=== PATIENT | male | born 1985 | race African-American/Black ===

== ENCOUNTER 2018-01-28 00:46 | Emergency (ER) | payer OTHER ==
[~2018-01-28] VITALS: Ht 167.6 cm; Wt 77.1 kg
--- NOTE | 2018-01-28 01:20 | PHYS DOC ---
Past Medical History Past Medical History: No Pertinent History, Hypertension Past Medical History Hypercholesterolemia Past Surgical History: Other (Left hand wart surgery) Additional Past Surgical Histo: hand Smokin Pack Per Day Alcohol Use: Occasionally Drug Use: Marijuana, Opiates Adult General Chief Complaint Chief Complaint: DRUG ABUSE HPI HPI Patient is a 32yo male presenting to the ED seeking help with opioid detox. Pt states that he has been using Percocet and hydrocodone for the last 8 years, which were initially prescribed to him for shoulder pain. States that his last use was approximately 24 hours ago. He has never sought treatment for opioid abuse. He states that he vomited today and had diarrhea. States that his whole body is in pain currently. Denies SI, HI, or hallucinations. Review of Systems Review of Systems Constitutional: Denies fever or chills [] Eyes: Denies change in visual acuity, redness, or eye pain [] HENT: Denies nasal congestion or sore throat [] Respiratory: Denies cough or shortness of breath [] Cardiovascular: Denies chest pain or palpitations GI: Reports nausea, vomiting, and diarrhea [] : Denies dysuria or hematuria [] Musculoskeletal: Denies back pain or joint pain [] Integument: Denies rash or skin lesions [] Neurologic: Denies headache, focal weakness or sensory changes [] Psych: Denies suicidal or homicidal ideation Complete systems were reviewed and found to be within normal limits, except as documented in this note. Current Medications Current Medications Current Medications Medications (Trade) Dose Ordered Sig/Katherine Start Time Stop Time Status Last Admin Dose Admin Clonidine HCl (Catapres) 0.1 mg 1X ONCE 01/28/18 02:00 01/28/18 02:01 DC 01/28/18 01:55 0.1 MG Dexamethasone (Decadron) 10 mg 1X ONCE 01/28/18 02:00 01/28/18 02:01 DC 01/28/18 01:54 10 MG Ondansetron HCl (Zofran Odt) 4 mg 1X ONCE 01/28/18 02:00 01/28/18 02:01 DC 01/28/18 01:55 4 MG Allergies Allergies Allergies Coded Allergies Type Severity Reaction Last Updated Verified No Known Drug Allergies 09/01/13 No Physical Exam Physical Exam Constitutional: Well developed, well nourished, no acute distress, non-toxic appearance. [] HENT: Normocephalic, atraumatic, Eyes: PERRL, EOMI, conjunctiva normal, no nystagmus Neck: Normal range of motion, no tenderness, supple, no stridor. [] Cardiovascular: Heart rate regular rhythm, no murmur [] Lungs & Thorax: Bilateral breath sounds clear to auscultation [] Abdomen: Soft, no tenderness Skin: Warm, dry, no erythema, no rash. [] Extremities: No tenderness, ROM intact, no edema. [] Neurologic: Alert and oriented X 3, normal motor function, normal sensory function, no focal deficits noted. [] Psychologic: Affect normal, judgement normal, mood normal, denies suicidal and homicidal ideation Current Patient Data Vital Signs Vital Signs Date Time Temp Pulse Resp B/P (MAP) Pulse Ox O2 Delivery O2 Flow Rate FiO2 01/28/18 01:55 97 198/102 01/28/18 01:11 97.7 20 98 Room Air 97.7 EKG EKG [] Radiology/Procedures Radiology/Procedures [] Course & Med Decision Making Course & Med Decision Making Pertinent Labs and Imaging studies reviewed. (See chart for details) Patient presents with report of opioid dependency. Patient concerned given some withdrawal symptoms. Patient neurologically intact. Symptomatic treatment provided. Detox and drug abuse resources provided. Patient stable for discharge with outpatient follow-up with PCP. Discussed findings and plan with patient, who acknowledges understanding and agreement. Dragon Disclaimer Dragon Disclaimer This electronic medical record was generated, in whole or in part, using a voice recognition dictation system. Departure Departure Impression: Primary Impression: Opioid abuse Disposition: 01 HOME, SELF-CARE Condition: STABLE Referrals: WILIAN JULES MD (PCP) Patient Instructions: Narcotic Withdrawal, Opiate Dependence Scripts Clonidine Hcl (CLONIDINE HCL) 0.1 Mg Tablet 0.1 MG PO TID PRN for WITHDRAWAL IRRITABILITY, #14 TAB Prov: WILIAN HAGEN DO 01/28/18 Ondansetron (ZOFRAN ODT) 4 Mg Tab.rapdis 4 MG PO TID PRN for NAUSEA/VOMITING, #14 TAB Prov: WILIAN HAGEN DO 01/28/18 WILIAN HAGEN DO Jan 28, 2018 01:20
[2018-01-28] MEDS ORDERED: CLON0.1T PO (01:42)
[2018-01-28] MEDS ORDERED: ONDA4TAB10 PO (01:42)
[2018-01-28 01:55] VITALS: BP 198/102
[2018-01-28] MEDS ORDERED: ONDANSETRON ODT 4 MG TAB.RAPDIS. PO ONE (02:00)
[2018-01-28] MEDS ORDERED: cloNIDine HCL 0.1 MG TABLET PO ONE (02:00)
[2018-01-28] MEDS ORDERED: DEXAMETHASONE 4 MG TABLET PO ONE (02:00)
== END 2018-01-28 02:03 | disposition home or self-care (01) ==
LOC: ER 00:46
DX: F11.10 Opioid abuse, uncomplicated (principal); I10 Essential (primary) hypertension; F12.10 Cannabis abuse, uncomplicated; F17.210 Nicotine dependence, cigarettes, uncomplicated; E78.00 Pure hypercholesterolemia, unspecified
CPT/HCPCS: 99284; J8540; Q0162

== ENCOUNTER → 2020-06-17 | Outpatient (CLI) | payer MEDICAID ==
[~2020-06-17] MED LIST: CLON0.1T PO; ONDA4TAB10 PO
--- NOTE | 2020-06-17 14:33 | KCIC ---
3 views of the left knee without comparison for generalized knee pain for 6 months. FINDINGS: There is no fracture or acute osseous abnormality. Joints and soft tissues are grossly unre markable. No radiopaque foreign bodies. No significant degenerative changes. IMPRESSION: 1. No acute osseous abnormality. Electronically signed by: Jarod Aguila MD (06/17/2020 2:30 PM) [id number]
== END ==
LOC: KCIC 11:24
PROVIDERS: ATTEND Family Medicine
DX: M70.52 Other bursitis of knee, left knee (principal)
CPT/HCPCS: 73562